=== PATIENT | male | born 1990 | race Caucasian/White ===

== ENCOUNTER 2017-11-05 12:02 | Day surgery (SDC) | payer MEDICARE ==
[~2017-11-05] VITALS: Ht 182.9 cm; Wt 95.2 kg
[~2017-11-05 12:02] MED LIST: DAILY VITE1 EAC1 PO; ZYRTEC10 M2 PO
[2017-11-05 12:38] VITALS: BP 157/85
[2017-11-05] MEDS ORDERED: HYDROCODON-ACE1 EAC7 PO (18:03)
[2017-11-05] MEDS ORDERED: MOTRIN600 MG PO (18:03)
[2017-11-05] MEDS ORDERED: COLACE100 MG PO (18:03)
[2017-11-05 18:15] VITALS: BP 154/86
[2017-11-05 19:15] VITALS: BP 154/86
[2017-11-07 15:14] LABS: Flow Clinical Information NOT PROVIDED (()); Flow Number of Markers 22 (()); Flow Spec Viability 91 % (()); Flow Specimen Type LYMPH NODE (())
== END 2017-11-05 19:15 | disposition home or self-care (01) ==
LOC: SDC 12:02
PROVIDERS: Thoracic Surgery (Cardiothoracic Vascular Surgery)
PROC: 07BJ0ZX Excision of Left Inguinal Lymphatic, Open Approach, Diagnostic (ICD-10-PCS; principal; 2017-11-05)
DX: R59.0 Localized enlarged lymph nodes (principal); Z88.0 Allergy status to penicillin; Z87.891 Personal history of nicotine dependence
CPT/HCPCS: 88305; J1100; J1885; J2250; J2405; J3010